=== PATIENT | male | born 1955 | race Native Hawaiian/Other Pacific Islander ===

== ENCOUNTER 2016-06-24 10:33 | Outpatient (CLI) | payer BC ==
[~2016-06-24 10:33] MED LIST: CALCITRIOL0.25 MCG OR; CLOP75TA2 PO; DIOVAN HCT320 MG/25 PO; DULOXETINE HCL60 MG PO; LABETALOL200 MG OR; PIOG30TA PO; VITAMIN D35000 UNIT OR; VYTORIN1 TA2 PO
== END 2016-06-24 19:05 | disposition home or self-care (01) ==
LOC: RAD 10:33
DX: M19.211 Secondary osteoarthritis, right shoulder (principal); M75.51 Bursitis of right shoulder; M75.41 Impingement syndrome of right shoulder

== ENCOUNTER 2016-12-07 09:31 | Outpatient (CLI) | payer BC ==
[2017-04-13] MEDS ORDERED: NUCYNTA ER50 MG OR (16:37)
[2017-04-13] MEDS ORDERED: NUCYNTA50 MG PO (16:39)
== END 2016-12-07 21:53 | disposition home or self-care (01) ==
LOC: US 09:31
DX: N18.9 Chronic kidney disease, unspecified (principal)

== ENCOUNTER 2017-01-24 08:56 | Outpatient (CLI) | payer BC ==
[2017-04-13] MEDS ORDERED: NUCYNTA ER50 MG OR (16:37)
[2017-04-13] MEDS ORDERED: NUCYNTA50 MG PO (16:39)
== END 2017-01-24 18:56 | disposition home or self-care (01) ==
LOC: RESP 08:56
DX: I50.30 Unspecified diastolic (congestive) heart failure (principal)
CPT/HCPCS: 93306

== ENCOUNTER 2017-04-12 10:25 | Outpatient (CLI) | payer BC ==
[2017-04-12 11:30] LABS: PLATELET COUNT 200 K/uL (142-355)
[2017-04-12 12:32] LABS: POTASSIUM 4.1 mmol/L (3.6-5.2)
[2017-04-12] MEDS ORDERED: MULTIVITAMIN ME1 TAB PO (19:46)
[2017-04-12] MEDS ORDERED: ASPIR-8181 MG PO (19:46)
[2017-04-12] MEDS ORDERED: NUCYNTA50 MG PO (19:47)
[2017-04-13] MEDS ORDERED: NUCYNTA ER50 MG OR (16:37)
[2017-04-13] MEDS ORDERED: NUCYNTA50 MG PO (16:39)
== END 2017-04-12 12:00 | disposition home or self-care (01) ==
LOC: LABW 10:25
PROVIDERS: Nurse Practitioner Family
DX: R06.02 Shortness of breath (principal); R79.89 Other specified abnormal findings of blood chemistry
CPT/HCPCS: 36415; 80053; 80061; 81000; 82043; 82306; 82570; 83036; 83880; 85027

== ENCOUNTER 2017-04-17 11:07 | Outpatient (CLI) | payer BC ==
[~2017-04-17 11:07] MED LIST changes: +ASPIR-8181 MG PO; +MULTIVITAMIN ME1 TAB PO; +NUCYNTA ER50 MG OR; +NUCYNTA50 MG PO
== END 2017-04-17 23:03 | disposition home or self-care (01) ==
LOC: RESP 11:07
DX: I50.9 Heart failure, unspecified (principal)
CPT/HCPCS: 93306

== ENCOUNTER 2017-04-18 14:57 | Outpatient (CLI) | payer BC ==
[2017-04-18 15:42] LABS: POTASSIUM 4.3 mmol/L (3.6-5.2)
== END 2017-04-18 17:00 ==
LOC: LABW 14:57
PROVIDERS: Internal Medicine Cardiovascular Disease
DX: I50.9 Heart failure, unspecified (principal)
CPT/HCPCS: 36415; 80048; 83880

== ENCOUNTER 2017-05-02 10:33 | Outpatient (CLI) | payer BC | END 2017-05-02 19:22 | disposition home or self-care (01) | LOC: RESP 10:33 | DX: R06.02 Shortness of breath (principal) | CPT/HCPCS: 94640; 94664 ==

== ENCOUNTER 2017-07-12 13:36 | Emergency (ER) | payer BC ==
[~2017-07-12] VITALS: Ht 177.8 cm; Wt 144.2 kg
[2017-07-12 13:41] VITALS: TEMP 97.7
[2017-07-12 15:24] LABS: POTASSIUM 3.9 mmol/L (3.6-5.2)
[2017-07-12 15:25] LABS: PLATELET COUNT 143 K/uL (142-355)
[2017-07-12 16:50] VITALS: BP 128/72
== END 2017-07-12 17:05 | disposition home or self-care (01) ==
LOC: ED 13:36
PROVIDERS: Emergency Medicine
DX: R63.5 Abnormal weight gain (principal); K59.00 Constipation, unspecified
CPT/HCPCS: 36415; 80053; 81000; 83880; 85027; 85379; 99283

== ENCOUNTER 2017-08-08 12:17 | Outpatient (CLI) | payer BC ==
[2017-08-08 12:51] LABS: PLATELET COUNT 196 K/uL (142-355)
[2017-08-08 13:13] LABS: POTASSIUM 3.9 mmol/L (3.6-5.2)
== END 2017-08-08 20:33 | disposition home or self-care (01) ==
LOC: LABW 12:17
PROVIDERS: Nurse Practitioner Family
DX: I10 Essential (primary) hypertension (principal); E11.9 Type 2 diabetes mellitus without complications; I50.41 Acute combined systolic (congestive) and diastolic (congestive) heart failure; Z79.899 Other long term (current) drug therapy; Z51.81 Encounter for therapeutic drug level monitoring; R53.83 Other fatigue; R53.81 Other malaise
CPT/HCPCS: 36415; 80053; 80061; 82306; 82607; 83036; 83880; 84154; 84436; 84443; 85027

== ENCOUNTER 2017-08-09 15:56 | Observation (INO) | payer BC ==
[~2017-08-09] VITALS: Ht 179.1 cm; Wt 140.2 kg
[2017-08-09 17:45] VITALS: BP 127/50; TEMP 98.1; Ht 179.1 cm; Wt 140.2 kg
[2017-08-09 17:51] LABS: PLATELET COUNT 270 K/uL (142-355)
[2017-08-09 18:26] LABS: POTASSIUM 4.1 mmol/L (3.6-5.2)
--- NOTE | 2017-08-09 18:55 | NUR ---
CELLULITIS TO [place]ARREN LOWER EXT'S, [id number] DARK AREA ON OUTER ASPECT L LOWER LEG. PT STATES "LEGS HAVE BEEN LIKE THIS FOR LONG TIME".
[2017-08-09 20:00] VITALS: BP 134/51; TEMP 98
[2017-08-10] VITALS: BP 151/67; TEMP 97.9
[2017-08-10] MEDS ORDERED: NUCYNTA50 MG PO (00:44)
[2017-08-10] MEDS ORDERED: ONE DAILY FOR MEN 50 (00:47)
[2017-08-10] MEDS ORDERED: DOCU100C10 PO (00:48)
[2017-08-10 04:00] VITALS: BP 144/57; TEMP 98.2
[2017-08-10 08:00] VITALS: BP 155/53; TEMP 97.9
[2017-08-10 11:44] VITALS: BP 180/61; TEMP 98.5
[2017-08-10] MEDS ORDERED: FURO20TA67 PO (11:49)
== END 2017-08-10 13:20 | disposition home or self-care (01) ==
LOC: MED/SURG 15:56
PROVIDERS: ADMIT Emergency Medicine
DX: R06.02 Shortness of breath (principal); E66.01 Morbid (severe) obesity due to excess calories; I10 Essential (primary) hypertension; E11.9 Type 2 diabetes mellitus without complications; Z86.73 Personal history of transient ischemic attack (TIA), and cerebral infarction without residual deficits; M48.00 Spinal stenosis, site unspecified; M15.8 Other polyosteoarthritis; G47.33 Obstructive sleep apnea (adult) (pediatric); I50.9 Heart failure, unspecified
CPT/HCPCS: 36600; 80053; 81000; 82550; 82553; 82805; 83735; 83880; 84443; 84484; 85027; 94760; 99220; G0378; G0379; J1940

== ENCOUNTER 2017-08-16 12:58 | Outpatient (CLI) | payer BC ==
[~2017-08-16 12:58] MED LIST changes: +DOCU100C10 PO; +FURO20TA67 PO; +ONE DAILY FOR MEN 50
== END 2017-08-16 20:09 | disposition home or self-care (01) ==
LOC: RESP 12:58
DX: E87.79 Other fluid overload (principal); I50.30 Unspecified diastolic (congestive) heart failure; I10 Essential (primary) hypertension
CPT/HCPCS: 93306

== ENCOUNTER 2017-09-20 04:28 | Outpatient (CLI) | payer BC ==
[2017-09-20 05:40] LABS: PLATELET COUNT 179 K/uL (142-355)
[2017-09-20 06:43] LABS: POTASSIUM 4.4 mmol/L (3.6-5.2)
== END 2017-09-20 19:27 | disposition home or self-care (01) ==
LOC: LABW 04:28
PROVIDERS: Internal Medicine Nephrology
DX: N18.3 Chronic kidney disease, stage 3 (moderate) (principal); R79.89 Other specified abnormal findings of blood chemistry
CPT/HCPCS: 36415; 80069; 82570; 82728; 83540; 83550; 83970; 84155; 85027

== ENCOUNTER 2017-12-05 16:07 | Outpatient (CLI) | payer OTHER, BC ==
[2017-12-05 16:50] LABS: POTASSIUM 3.9 mmol/L (3.6-5.2)
== END 2017-12-05 19:45 | disposition home or self-care (01) ==
LOC: LABW 16:07
PROVIDERS: Internal Medicine Cardiovascular Disease
DX: R06.02 Shortness of breath (principal)
CPT/HCPCS: 36415; 80048; 83880

== ENCOUNTER 2018-01-09 14:23 | Outpatient (CLI) | payer OTHER, BC ==
[2018-01-09 15:18] LABS: POTASSIUM 4.2 mmol/L (3.6-5.2)
== END 2018-01-09 21:00 | disposition home or self-care (01) ==
LOC: LABW 14:23
PROVIDERS: Internal Medicine Cardiovascular Disease
DX: R06.02 Shortness of breath (principal); Z79.899 Other long term (current) drug therapy
CPT/HCPCS: 36415; 80048; 83880

== ENCOUNTER 2018-02-21 11:07 | Outpatient (CLI) | payer OTHER, BC ==
[2018-02-21 12:27] LABS: PLATELET COUNT 184 K/uL (142-355)
[2018-02-21 13:27] LABS: POTASSIUM 3.3 mmol/L (3.6-5.2)
== END 2018-02-21 23:40 | disposition home or self-care (01) ==
LOC: LABW 11:07
PROVIDERS: Internal Medicine
DX: N18.4 Chronic kidney disease, stage 4 (severe) (principal); D64.9 Anemia, unspecified; R53.82 Chronic fatigue, unspecified; Z79.899 Other long term (current) drug therapy
CPT/HCPCS: 36415; 80053; 80074; 81000; 82043; 82306; 82330; 82570; 82607; 82728; 82746; 83036; 83540; 83550; 83735; 83970; 84100; 84155; 84439; 84443; 84550; 85027

== ENCOUNTER 2018-05-02 05:49 | Outpatient (CLI) | payer OTHER, BC ==
[2018-05-02 06:35] LABS: PLATELET COUNT 149 K/uL (142-355)
[2018-05-02 06:52] LABS: POTASSIUM 3.9 mmol/L (3.6-5.2)
== END 2018-05-02 20:26 | disposition home or self-care (01) ==
LOC: LABW 05:49
PROVIDERS: Internal Medicine Cardiovascular Disease
DX: N18.4 Chronic kidney disease, stage 4 (severe) (principal); Z79.899 Other long term (current) drug therapy
CPT/HCPCS: 36415; 80053; 82306; 83735; 83970; 84100; 85027

== ENCOUNTER 2018-08-22 05:56 | Outpatient (CLI) | payer OTHER, BC ==
[2018-08-22 06:47] LABS: POTASSIUM 4.5 mmol/L (3.6-5.2)
[2018-08-22 06:57] LABS: PLATELET COUNT 176 K/uL (142-355)
== END 2018-08-22 23:41 | disposition home or self-care (01) ==
LOC: LABW 05:56
PROVIDERS: Internal Medicine
DX: N18.4 Chronic kidney disease, stage 4 (severe) (principal)
CPT/HCPCS: 36415; 80053; 83735; 83970; 84100; 85027

== ENCOUNTER 2018-09-04 02:55 | Emergency (ER) | payer OTHER, BC ==
[~2018-09-04] VITALS: Ht 177.8 cm; Wt 136.1 kg
[2018-09-04 03:18] LABS: PLATELET COUNT 180 K/uL (142-355)
[2018-09-04 03:30] LABS: POTASSIUM 4.9 mmol/L (3.6-5.2)
[2018-09-04 05:11] VITALS: BP 142/76; TEMP 97.5
== END 2018-09-04 05:00 | disposition home or self-care (01) ==
LOC: ED 02:55
PROVIDERS: Internal Medicine
DX: M62.81 Muscle weakness (generalized) (principal); I10 Essential (primary) hypertension; E11.9 Type 2 diabetes mellitus without complications; R41.0 Disorientation, unspecified
CPT/HCPCS: 36415; 80053; 81000; 82550; 84484; 85027; 93005; 99283

== ENCOUNTER 2018-11-28 05:13 | Outpatient (CLI) | payer OTHER, BC ==
[2018-11-28 05:44] LABS: PLATELET COUNT 157 K/uL (142-355)
[2018-11-28 05:55] LABS: POTASSIUM 5.1 mmol/L (3.6-5.2)
== END 2018-11-28 21:44 | disposition home or self-care (01) ==
LOC: LABW 05:13
PROVIDERS: Internal Medicine
DX: N18.4 Chronic kidney disease, stage 4 (severe) (principal)
CPT/HCPCS: 36415; 80053; 81000; 82330; 82570; 83735; 84100; 84155; 85027

== ENCOUNTER 2019-01-22 11:58 | Outpatient (CLI) | payer OTHER, BC | END 2019-01-22 21:32 | disposition home or self-care (01) | LOC: RAD 11:58 | DX: Z00.00 Encounter for general adult medical examination without abnormal findings (principal); I11.0 Hypertensive heart disease with heart failure; N28.89 Other specified disorders of kidney and ureter; I63.89 Other cerebral infarction; J44.9 Chronic obstructive pulmonary disease, unspecified; G89.29 Other chronic pain; I50.9 Heart failure, unspecified; J45.909 Unspecified asthma, uncomplicated; D64.89 Other specified anemias; R53.81 Other malaise ==

== ENCOUNTER 2019-02-26 09:11 | Outpatient (CLI) | payer OTHER, BC | END 2019-02-26 21:51 | disposition home or self-care (01) | LOC: RAD 09:11 | DX: J18.9 Pneumonia, unspecified organism (principal) ==

== ENCOUNTER 2019-02-26 09:16 | Day surgery (SDC) | payer OTHER, BC ==
[2019-02-26 10:33] LABS: POTASSIUM 4.2 mmol/L (3.6-5.2)
[2019-02-26 11:23] LABS: PLATELET COUNT 160 K/uL (142-355)
== END 2019-02-26 14:30 | disposition home or self-care (01) ==
LOC: OR 09:16
PROVIDERS: Internal Medicine Gastroenterology
PROC: 0DBL8ZZ Excision of Transverse Colon, Via Natural or Artificial Opening Endoscopic (ICD-10-PCS; principal; 2019-02-26)
DX: K51.40 Inflammatory polyps of colon without complications (principal); K57.30 Diverticulosis of large intestine without perforation or abscess without bleeding; K64.8 Other hemorrhoids; K59.8 Other specified functional intestinal disorders; Z12.11 Encounter for screening for malignant neoplasm of colon; D50.8 Other iron deficiency anemias
CPT/HCPCS: 80053; 85027

== ENCOUNTER 2019-04-23 09:50 | Day surgery (SDC) | payer OTHER, BC ==
[2019-04-23 10:33] LABS: PLATELET COUNT 209 K/uL (142-355)
[2019-04-23 11:10] LABS: POTASSIUM 4.8 mmol/L (3.6-5.2)
== END 2019-04-24 14:59 | disposition home or self-care (01) ==
LOC: OR 09:50
PROVIDERS: Internal Medicine Gastroenterology
PROC: 0DB68ZZ Excision of Stomach, Via Natural or Artificial Opening Endoscopic (ICD-10-PCS; principal; 2019-04-23)
PROC: 0DB88ZZ Excision of Small Intestine, Via Natural or Artificial Opening Endoscopic (ICD-10-PCS; 2019-04-23)
DX: K20.8 Other esophagitis (principal); K22.10 Ulcer of esophagus without bleeding; K29.50 Unspecified chronic gastritis without bleeding; K25.9 Gastric ulcer, unspecified as acute or chronic, without hemorrhage or perforation; D50.8 Other iron deficiency anemias
CPT/HCPCS: 36415; 80053; 81000; 82306; 82330; 82570; 82607; 82728; 82746; 83540; 83550; 83735; 83970; 84100; 84155; 85027

== ENCOUNTER 2020-03-13 19:16 | Emergency (ER) | payer OTHER, BC ==
[~2020-03-13] VITALS: Ht 33 cm; Wt 0.5 kg
[2020-03-13 20:07] LABS: PLATELET COUNT 233 K/uL (142-355)
[2020-03-13 20:08] LABS: POTASSIUM 5.2 mmol/L (3.6-5.2)
[2020-03-13 23:20] VITALS: BP 105/83; TEMP 98.8
== END 2020-03-13 23:20 | disposition home or self-care (01) ==
LOC: ED 19:16
PROVIDERS: Emergency Medicine Emergency Medical Services
DX: R11.2 Nausea with vomiting, unspecified (principal); K90.49 Malabsorption due to intolerance, not elsewhere classified; R06.02 Shortness of breath; Z20.828 Contact with and (suspected) exposure to other viral communicable diseases
CPT/HCPCS: 36415; 80053; 81000; 82150; 83690; 84484; 85027; 87502; 87635; 93005; 94664; 96360; 96361; 96365; 96374; 96376; 99284; J2405; J3490; U0003

== ENCOUNTER 2020-04-15 15:04 | Outpatient (CLI) | payer OTHER, BC | END 2020-04-15 23:49 | disposition home or self-care (01) | LOC: LAB 15:04 | PROVIDERS: ATTEND Nurse Practitioner Family | DX: L24.89 Irritant contact dermatitis due to other agents (principal); L29.8 Other pruritus; Z79.899 Other long term (current) drug therapy | CPT/HCPCS: 82272; 87328; 87329; 87338 ==

== ENCOUNTER 2020-07-06 10:48 | Outpatient (CLI) | payer OTHER, BC | END 2020-07-06 21:02 | disposition home or self-care (01) | LOC: LAB 10:48 | PROVIDERS: ATTEND Internal Medicine | DX: N18.4 Chronic kidney disease, stage 4 (severe) (principal) | CPT/HCPCS: 82330 ==

== ENCOUNTER 2020-07-09 12:15 | Outpatient (CLI) | payer OTHER, BC ==
[2020-07-09 12:51] LABS: PLATELET COUNT 172 K/uL (142-355)
[2020-07-09 13:52] LABS: POTASSIUM 5.6 mmol/L (3.6-5.2)
== END 2020-07-09 20:55 | disposition home or self-care (01) ==
LOC: LAB 12:15
PROVIDERS: ATTEND Internal Medicine
DX: N18.4 Chronic kidney disease, stage 4 (severe) (principal); Z79.899 Other long term (current) drug therapy; N40.0 Benign prostatic hyperplasia without lower urinary tract symptoms; R53.83 Other fatigue
CPT/HCPCS: 80053; 80061; 81000; 82330; 82570; 83036; 83735; 83970; 84100; 84153; 84155; 84402; 84403; 84436; 84439; 84443; 85027

== ENCOUNTER 2020-08-25 08:23 | Outpatient (CLI) | payer OTHER, BC | END 2020-08-25 23:00 | disposition home or self-care (01) | LOC: CT 08:23 | PROVIDERS: ATTEND Nurse Practitioner Family | DX: R10.84 Generalized abdominal pain (principal) ==

== ENCOUNTER 2020-09-01 13:04 | Outpatient (CLI) | payer OTHER, BC | END 2020-09-01 22:22 | disposition home or self-care (01) | LOC: RESP 13:04 | PROVIDERS: ATTEND Internal Medicine Sleep Medicine | DX: J45.909 Unspecified asthma, uncomplicated (principal) ==

== ENCOUNTER 2020-09-14 11:34 | Outpatient (CLI) | payer OTHER, BC ==
[2020-09-21 17:00] LABS: PLATELET COUNT 164 K/uL (142-355)
[2020-09-21 17:03] LABS: POTASSIUM 3.2 mmol/L (3.6-5.2); SODIUM 146 mmol/L (136-145)
== END 2020-09-14 17:00 | disposition home or self-care (01) ==
LOC: LAB 11:34
PROVIDERS: ATTEND Internal Medicine
DX: I12.9 Hypertensive chronic kidney disease with stage 1 through stage 4 chronic kidney disease, or unspecified chronic kidney disease (principal); N18.4 Chronic kidney disease, stage 4 (severe); D64.89 Other specified anemias; E66.9 Obesity, unspecified; R06.02 Shortness of breath; I50.9 Heart failure, unspecified; J44.9 Chronic obstructive pulmonary disease, unspecified; G47.33 Obstructive sleep apnea (adult) (pediatric); I73.9 Peripheral vascular disease, unspecified; Z79.899 Other long term (current) drug therapy; N40.0 Benign prostatic hyperplasia without lower urinary tract symptoms
CPT/HCPCS: 36415; 80053; 80061; 81000; 82043; 82306; 82330; 82570; 82607; 82746; 83036; 83735; 83970; 84100; 84153; 84155; 84403; 84443; 85027

== ENCOUNTER 2020-10-12 09:55 | Inpatient (IN) | payer OTHER, BC ==
[~2020-10-12] VITALS: Ht 177.8 cm; Wt 153.8 kg
[2020-10-12 10:20] VITALS: BP 153/70; TEMP 97.8
[2020-10-12 11:57] LABS: PLATELET COUNT 187 K/uL (142-355)
[2020-10-12 12:05] LABS: POTASSIUM 2.7 mmol/L (3.6-5.2)
[2020-10-12 18:20] LABS: POTASSIUM 2.7 mmol/L (3.6-5.2)
[2020-10-12 19:11] VITALS: BP 173/82; TEMP 97.3; Ht 177.8 cm; Wt 153.8 kg
[2020-10-12] MEDS ORDERED: CLON0.1T16 PO (19:36)
[2020-10-12] MEDS ORDERED: CARV25TA PO (19:36)
[2020-10-12] MEDS ORDERED: FEOSOL45 MG PO (19:37)
[2020-10-12] MEDS ORDERED: FISH OIL1 C10 PO (19:39)
[2020-10-12] MEDS ORDERED: B COMPLE2 PO (19:39)
[2020-10-12] MEDS ORDERED: TORSEMIDE20 MG PO (19:40)
[2020-10-12] MEDS ORDERED: VITAMIN C500 M7 PO (19:41)
[2020-10-12] MEDS ORDERED: BREO ELLIPTA 201 INH INH (19:41)
[2020-10-12] MEDS ORDERED: SPIRONOLACT25 MG PO (19:42)
[2020-10-12] MEDS ORDERED: ALBU90AE13 INH (19:42)
[2020-10-12] MEDS ORDERED: MONTELUKAST SOD10 MG PO (19:43)
[2020-10-12] MEDS ORDERED: SPIRIVA RE1.25 MCG/A INH (19:43)
[2020-10-12] MEDS ORDERED: LORATADINE10 M1 PO (19:44)
[2020-10-12] MEDS ORDERED: CETI10TA PO (19:44)
[2020-10-12] MEDS ORDERED: DIPH25CA90 PO (19:46)
[2020-10-12] MEDS ORDERED: NEURONTIN 100M100 MG PO (19:48)
[2020-10-12 20:21] VITALS: BP 161/70; TEMP 97.4
[2020-10-13] VITALS: BP 178/91; TEMP 97.5
[2020-10-13 04:00] VITALS: BP 174/75; TEMP 97.3
[2020-10-13 05:18] LABS: PLATELET COUNT 198 K/uL (142-355)
[2020-10-13 05:32] LABS: POTASSIUM 2.9 mmol/L (3.6-5.2)
[2020-10-13 08:00] VITALS: BP 166/94; TEMP 97.7
[2020-10-13 12:00] VITALS: BP 164/104; TEMP 97.9
[2020-10-13 16:00] VITALS: BP 156/90; TEMP 97.7
[2020-10-13 20:00] VITALS: BP 185/89; TEMP 97.5
[2020-10-14 00:21] VITALS: BP 152/93; TEMP 97.6
[2020-10-14 04:00] VITALS: BP 180/91; TEMP 97.1
[2020-10-14 08:00] VITALS: BP 168/87; TEMP 97.5
[2020-10-14 08:21] LABS: PLATELET COUNT 186 K/uL (142-355)
[2020-10-14 08:39] LABS: POTASSIUM 4.1 mmol/L (3.6-5.2)
[2020-10-14 12:00] VITALS: BP 149/73; TEMP 97.5
[2020-10-14 16:00] VITALS: BP 151/70; TEMP 97.9
[2020-10-14 20:00] VITALS: BP 144/72; TEMP 97.4
[2020-10-15 00:10] VITALS: BP 148/60; TEMP 98.3
[2020-10-15 04:00] VITALS: BP 152/73; TEMP 97.8
[2020-10-15 04:52] LABS: PLATELET COUNT 190 K/uL (142-355)
[2020-10-15 05:43] LABS: POTASSIUM 4.1 mmol/L (3.6-5.2)
[2020-10-15 08:01] VITALS: BP 184/99; TEMP 97.3
== END 2020-10-15 12:45 | disposition home health service (06) | DRG 291 ==
LOC: ED 09:55 → MED/SURG 15:20
PROVIDERS: Family Medicine; Internal Medicine Endocrinology, Diabetes & Metabolism; ADMIT Internal Medicine; ATTEND Internal Medicine
DX: I13.0 Hypertensive heart and chronic kidney disease with heart failure and stage 1 through stage 4 chronic kidney disease, or unspecified chronic kidney disease (principal); I50.31 Acute diastolic (congestive) heart failure; N18.4 Chronic kidney disease, stage 4 (severe); E11.22 Type 2 diabetes mellitus with diabetic chronic kidney disease; Z86.73 Personal history of transient ischemic attack (TIA), and cerebral infarction without residual deficits; K21.9 Gastro-esophageal reflux disease without esophagitis; E87.6 Hypokalemia; D50.8 Other iron deficiency anemias; E83.42 Hypomagnesemia; E66.01 Morbid (severe) obesity due to excess calories; F45.8 Other somatoform disorders
CPT/HCPCS: 36415; 51702; 80048; 80053; 81000; 82570; 82607; 82728; 82746; 82948; 83540; 83735; 83880; 84300; 84484; 85027; 87635; 93005; 96374; 99220; 99284; G0378; J0360; J1650; J1940; J3475; U0003

== ENCOUNTER 2021-01-21 08:59 | Outpatient (CLI) | payer OTHER, BC ==
[~2021-01-21 08:59] MED LIST changes: +ALBU90AE13 INH; +B COMPLE2 PO; +BREO ELLIPTA 201 INH INH; +CARV25TA PO; +CETI10TA PO; +CLON0.1T16 PO; +DIPH25CA90 PO; +FEOSOL45 MG PO; +FISH OIL1 C10 PO; +LORATADINE10 M1 PO; +MONTELUKAST SOD10 MG PO; +NEURONTIN 100M100 MG PO; +SPIRIVA RE1.25 MCG/A INH; +SPIRONOLACT25 MG PO; +TORSEMIDE20 MG PO; +VITAMIN C500 M7 PO
[2021-01-21 09:57] LABS: POTASSIUM 3.8 mmol/L (3.6-5.2)
== END 2021-01-21 19:33 | disposition home or self-care (01) ==
LOC: LAB 08:59
PROVIDERS: ATTEND Internal Medicine
DX: N18.4 Chronic kidney disease, stage 4 (severe) (principal); R82.998 Other abnormal findings in urine
CPT/HCPCS: 80053; 81000; 82306; 82570; 83735; 83970; 84100; 84155; 87077; 87086; 87088; 87186

== ENCOUNTER 2021-01-22 11:42 | Outpatient (CLI) | payer OTHER, BC ==
[2021-01-22 12:18] LABS: PLATELET COUNT 206 K/uL (142-355)
== END 2021-01-22 23:30 | disposition home or self-care (01) ==
LOC: LAB 11:42
PROVIDERS: ATTEND Internal Medicine
DX: N18.4 Chronic kidney disease, stage 4 (severe) (principal)
CPT/HCPCS: 82330; 85027